=== PATIENT | female | born 2000 | race Two or more races ===

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

== ENCOUNTER 2019-03-05 15:37 | Emergency (ER) | payer MEDICAID, OTHER | END 2019-03-05 18:06 | disposition home or self-care (01) | LOC: FTE 15:37 | DX: H61.22 Impacted cerumen, left ear (principal) | CPT/HCPCS: 69209; 99283-25 ==